=== PATIENT | female | born 1945 | race Caucasian/White ===

== ENCOUNTER 2019-12-20 17:54 | Observation (INO) | payer MEDICARE ==
[2019-12-20] MEDS ORDERED: IPRATROPIUM-ALBUTEROL 3 ML NEB INHALATION PRN (18:35)
--- NOTE | 2019-12-20 18:39 | ED ---
General Adult HPI - General Chief complaint: Shortness of Breath Stated complaint: SOB Time Seen by Provider: 12/20/19 18:02 Source: patient, RN notes reviewed, old records reviewed Mode of arrival: ambulatory Limitations: no limitations - History of Present Illness Initial comments: 74-year-old female transferred from [facility] with asthma exacerbation and x-ray confirming pneumonia. Patient had presented with cough, dyspnea over the past 24 hours. She does have a history of asthma. She had subjective fever and chills. She was given albuterol, steroids, and ceftriaxone and azithromycin prior to transfer. She did have an elevated white blood cell count of 15.8 as well as chest x-ray confirming pneumonia. Covid test was sent but it was a send out and patient is uncertain if she had contact with any confirmed cases. Review of Systems ROS Statement: Those systems with pertinent positive or pertinent negative responses have been documented in the HPI. ROS Other: All systems not noted in ROS Statement are negative. Past Medical History Past Medical History: No Reported History History of Any Multi-Drug Resistant Organisms: None Reported Past Surgical History: No Surgical Hx Reported Past Psychological History: No Psychological Hx Reported Smoking Status: Current every day smoker Past Alcohol Use History: Occasional Past Drug Use History: None Reported General Exam Limitations: no limitations General appearance: alert, in no apparent distress Head exam: Present: atraumatic, normocephalic Eye exam: Present: normal appearance, PERRL ENT exam: Present: normal exam Neck exam: Present: normal inspection. Absent: tenderness, meningismus Respiratory exam: Present: respiratory distress, wheezes, decreased breath sounds Cardiovascular Exam: Present: regular rate, normal rhythm GI/Abdominal exam: Present: soft. Absent: distended, tenderness, guarding Extremities exam: Present: normal inspection, normal capillary refill. Absent: pedal edema Neurological exam: Present: alert, oriented X3, CN II-XII intact. Absent: motor sensory deficit Psychiatric exam: Present: normal affect, normal mood Skin exam: Present: warm, dry, intact Course Vital Signs 12/20/19 12/20/19 17:57 18:28 Temperature 98.7 F Pulse Rate 93 Respiratory 20 20 Rate Blood Pressure 149/91 O2 Sat by Pulse 98 Oximetry EKG Findings - EKG Comments: EKG Findings:: EKG: Normal sinus rhythm, ST segment depression in the lateral precordial leads, very subtle, no ST segment elevation, rate of 88, [place] interval 144, QRS duration 82, QTC 462 Medical Decision Making - Medical Decision Making 74-year-old female transferred with asthma exacerbation and pneumonia. Patient will be admitted to this institution for IV antibiotics, IV steroids, albuterol and Atrovent. She will be admitted to internal medicine. Disposition Clinical Impression: Asthma with acute exacerbation, Community acquired pneumonia Disposition: ADMITTED IP TO THIS [facility] Condition: Stable Is patient prescribed a controlled substance at d/c from ED?: No Referrals: Austin Valentine MD [Primary Care Provider] - 1-2 days Decision to Admit Reason: Admit from EC Decision Date: 12/20/19 Decision Time: 18:39
[2019-12-20] MEDS: IPRATROPIUM-ALBUTEROL 3 ML NEB INHALATION SCH (20:06)
[2019-12-20] MEDS ORDERED: SODIUM CHLORIDE 0.9% 1,000 ML IV SCH (22:30)
[2019-12-20] MEDS: HEPARIN SODIUM,PORCINE 5,000 UNIT/ML 1 ML VIAL SQ SCH (23:56)
[2019-12-20] MEDS: SODIUM CHLORIDE 0.9% 1,000 ML IV SCH (23:57)
[2019-12-20] MEDS: methylPREDNISolone SOD SUCCI 125 MG/2 ML VIAL IV SCH (23:59)
[2019-12-21] MEDS: methylPREDNISolone SOD SUCCI 125 MG/2 ML VIAL IV SCH (05:16)
[2019-12-21 07:10] LABS: Glucose,Whole Blood 121 mg/dL (75-99)
[2019-12-21] MEDS: INSULIN ASPART (NovoLOG) 100 UNIT/ML VIAL SQ SCH ×4 (07:31→22:09)
[2019-12-21] MEDS: AZITHROMYCIN 500 MG in SODIUM CHLORIDE 0.9% 250 ML IVPB SCH (08:29)
[2019-12-21] MEDS: FAMOTIDINE 20 MG/2 ML VIAL IV SCH ×2 (08:29→22:07)
[2019-12-21] MEDS: HEPARIN SODIUM,PORCINE 5,000 UNIT/ML 1 ML VIAL SQ SCH ×2 (08:29→22:07)
[2019-12-21 08:46] LABS: Partial Thromboplastin Time 25.8 sec (22.0-30.0); Prothrombin Time 10.4 sec (9.0-12.0)
[2019-12-21 08:47] LABS: Basophils % (A) 0 %; Eosinophils # (A) 0.1 k/uL (0-0.7); Eosinophils % (A) 1 %; HCT 44.5 % (34.0-46.0); HGB 14.9 gm/dL (11.4-16.0); Lymphocytes # (A) 0.5 k/uL (1.0-4.8); Lymphocytes % (A) 4 %; MCH 30.7 pg (25.0-35.0); MCHC 33.4 g/dL (31.0-37.0); MCV 91.7 fL (80.0-100.0); Mean Platelet Volume 7.7; Monocytes # (A) 0.2 k/uL (0-1.0); Monocytes % (A) 1 %; Neutrophils # (A) 12.1 k/uL (1.3-7.7); Neutrophils % (A) 94 %; Platelet Count 320 k/uL (150-450); RBC 4.85 m/uL (3.80-5.40); RDW 12.8 % (11.5-15.5); WBC 12.9 k/uL (3.8-10.6)
[2019-12-21] MEDS: IPRATROPIUM-ALBUTEROL 3 ML NEB INHALATION SCH ×4 (08:48→20:12)
[2019-12-21 08:53] LABS: ALT 16 U/L (4-34); AST 19 U/L (14-36); African American GFR (CKD) >90 (>60 ml/min/1.73 sqM); Albumin 4.3 g/dL (3.5-5.0); Alkaline Phosphatase 66 U/L (38-126); Anion Gap 13 mmol/L; Bilirubin,Unconjugated 0.7 mg/dL (0.0-1.1); Blood Urea Nitrogen 18 mg/dL (7-17); Calcium 9.6 mg/dL (8.4-10.2); Carbon Dioxide 20 mmol/L (22-30); Chloride 103 mmol/L (98-107); Glucose 111 mg/dL (74-99); Magnesium 2.2 mg/dL (1.6-2.3); Non-African American GFR(CKD) >90 (>60 ml/min/1.73 sqM); Sodium 136 mmol/L (137-145); Total Bilirubin 0.7 mg/dL (0.2-1.3); Total Protein 7.5 g/dL (6.3-8.2)
[2019-12-21] MEDS ORDERED: ALBUTEROL HFA INHALER INHALATION PRN (10:35)
--- NOTE | 2019-12-21 10:52 | P.HPIM ---
History of Present Illness this is a pleasant 74 years old female with past medical history of asthma and cigarette smoker, who was transferred from [facility] area she is a patient of Dr. Dedrick Valentine. Presents with respiratory symptoms: She presents because of dyspnea of one-day duration associated with subjective chills, no fever,she has cough with little green purulent phlegm. and in the afternoon yesterdaypatient was started to have some chest discomfort,she had EKG Showing sinus tachycardia with ST depression in V4 to V6,however this morning patient denies chest pain, she is breathing quietly in no acute respiratory distress labs are [facility] showingleukocytosis of 15.8 K, hemoglobin 14.9, platelets 270 1K, glucose 116, creatinine 1.0, GFR 55, sodium is 134, potassium 3.5, anion gap 17, liver enzymes elevated with AST 11 and ALT 13, total bilirubin is 1.0, troponin less than 0.01, chest x-ray showing infarct left base I [facility] patient was given Rocephin, Zithromax, aspirin and BiPAP. Coronavirus was tested She smokes about 1 pack per day for 50 years, and she drinks about 11 beers per day At [facility] another EKG showing normal sinus rhythm at [address]-T changes and QTC is 462 repeat labs this morning showing improvementimproved leukocytosis down to 12.9 K, sodium 136, creatinine normal at 0.6, liver enzymes not elevated, coronavirus not detected. EKG showing normal sinus rhythm at [address]-T changes and less pronounced ST depression in V4 to V6 Review of Systems CONSTITUTIONAL: No fever, no malaise, no fatigue. HEENT: No recent visual problems or hearing problems. Denied any sore throat. CARDIOVASCULAR: No orthopnea, PND, no palpitations, no syncope. PULMONARY: no hemoptysis. no chest wall tenderness GASTROINTESTINAL: No diarrhea, no nausea, no vomiting, no abdominal pain. Normoactive bowel sounds. NEUROLOGICAL: No headaches, no weakness, no numbness. HEMATOLOGICAL: Denies any bleeding or petechiae. GENITOURINARY: Denies any burning micturition, frequency, or urgency. MUSCULOSKELETAL/RHEUMATOLOGICAL: Denies any joint pain, swelling, or any muscle pain. ENDOCRINE: Denies any polyuria or polydipsia. Past Medical History Past Medical History: No Reported History Additional Past Medical History / Comment(s): NASAL CONGESTION History of Any Multi-Drug Resistant Organisms: None Reported Past Surgical History: No Surgical Hx Reported Past Anesthesia/Blood Transfusion Reactions: No Reported Reaction Past Psychological History: No Psychological Hx Reported Smoking Status: Current every day smoker Past Alcohol Use History: Occasional Additional Past Alcohol Use History / Comment(s): STATES BEER ON WEEKENDS Past Drug Use History: None Reported Medications and Allergies Home Medications Medication Instructions Recorded Confirmed Type Cetirizine HCl/Pseudoephedrine 1 tab PO DAILY 12/21/19 12/21/19 History [Zyrtec-D Tablet] Nitrofurantoin Monohyd/M-Cryst 100 mg PO BID 12/21/19 12/21/19 History [Macrobid] Zolpidem Tartrate [Ambien] 5 mg PO HS PRN 12/21/19 12/21/19 History Allergies Allergy/AdvReac Type Severity Reaction Status Date / Time Penicillins Allergy Unknown Verified 12/21/19 08:41 Physical Exam Vitals: Vital Signs Temp Pulse Pulse Pulse Resp BP BP 12/21/19 09:07 96 12/21/19 09:00 92 12/21/19 07:00 98.3 F 93 16 138/88 12/21/19 02:00 98.1 F 100 19 147/87 12/20/19 23:30 18 12/20/19 20:30 98.3 F 90 18 148/77 12/20/19 19:50 98.0 F 92 18 157/76 12/20/19 19:07 98.0 F 92 18 157/76 12/20/19 18:28 20 12/20/19 17:57 98.7 F 93 20 149/91 Pulse Ox 12/21/19 09:07 12/21/19 09:00 12/21/19 07:00 94 L 12/21/19 02:00 92 L 12/20/19 23:30 12/20/19 20:30 94 L 12/20/19 19:50 98 12/20/19 19:07 98 12/20/19 18:28 12/20/19 17:57 98 Intake and Output 12/20/19 12/21/19 12/21/19 22:59 06:59 14:59 Intake Total 450 320 Balance 450 320 Intake: Oral 450 320 Other: Voiding Method Toilet Toilet # Voids 1 1 Weight 77.111 kg GENERAL: The patient is alert and oriented x3, not in any acute distress. Well developed, well nourished. HEENT: Pupils are round and equally reacting to light. EOMI. No scleral icterus. No conjunctival pallor. Normocephalic, atraumatic. No pharyngeal erythema. No thyromegaly. CARDIOVASCULAR: S1 and S2 present. No murmurs, rubs, or gallops. -PULMONARY: Chest is clear to auscultation,scattered bilateral wheezing ABDOMEN: Soft, nontender, nondistended, normoactive bowel sounds. No palpable organomegaly. MUSCULOSKELETAL: No joint swelling or deformity. EXTREMITIES: No cyanosis, clubbing, or pedal edema. NEUROLOGICAL: Gross neurological examination did not reveal any focal deficits. SKIN: No rashes. No petechiae Results CBC & Chem 7: 12/21/19 07:49 12/21/19 07:49 Labs: Abnormal Lab Results - Last 24 Hours (Table) 12/21/19 12/21/19 12/21/19 Range/Units 07:07 07:49 07:49 WBC 12.9 H (3.8-10.6) k/uL Neutrophils # 12.1 H (1.3-7.7) k/uL Lymphocytes # 0.5 L (1.0-4.8) k/uL Sodium 136 L (137-145) mmol/L Carbon Dioxide 20 L (22-30) mmol/L BUN 18 H (7-17) mg/dL Glucose 111 H (74-99) mg/dL POC Glucose (mg/dL) 121 H (75-99) mg/dL Thrombosis Risk Factor Assmnt - Choose All That Apply Any of the Below Risk Factors Present?: No Other Risk Factors: Yes Each Risk Factor Represents 2 Points: Age 61-74 years Other congenital or acquired thrombophilia - If yes, enter type in comment: No Thrombosis Risk Factor Assessment Total Risk Factor Score: 2 Thrombosis Risk Factor Assessment Level: Low Risk Assessment and Plan Assessment: possible left lower lobe community acquired pneumonia possible acute COPD exacerbation chest discomfort, with reversible ST depression in V4 to V6 Nicotine dependence possible alcohol abuse, at-risk of alcohol withdrawal asthma Plan: this is a pleasant 72 years old female presents because of pneumonia and chest pain with EKG changes. Continue with Zithromax and ceftriaxone, continue gentle hydration, continue with steroids. continue with aspirin.Continue with a breathing treatment,repeat chest x-ray, we will order echocardiogram Labs and medication were reviewed.. Continue same treatment. Continue with symptomatic treatment. Resume home medication. Monitor lytes and vitals. DVT and GI prophylaxis. Further recommendations of the clinical course of the patient DVT prophylaxis: Subcutaneous heparin GI Prophylaxis: Pepcid PT/OT: Pending Prognosis is guarded
--- NOTE | 2019-12-21 11:11 | P.CRDCN ---
History of Present Illness Consult date: 12/21/19 Requesting physician: Pj E Sheet Reason for Consult (text): chest discomfort, ST depression Chief complaint: shortness of breath, chest tightness History of present illness: This is a pleasant 74-year-old female patient with no significant past medical history. Does have a history of smoking about a pack a day for the last 50 or more years. Takes no medications at home. Presented to the hospital at [place] with complaints of shortness of breath and chest tightness. She usually walks 3-4 miles every day and yesterday was having difficulties is getting around her house without having to rest. She has noticed looking back that over the last week she's had to stop more during her walks to catch her breath. Chest x-ray out of the [place] showed possible left base infiltrate. White count is elevated. Troponin was negative times one at [facility] at 0.01 and NT proBNP was normal at 90. EKG and [place] did show some ST depression in anterolateral leads. EKG upon presentation here showed some improvement and she was less tachycardic. She was transferred here for higher level care. Since admission here blood pressure has been elevated and heart rate has been in the 90s. She's on room air saturating anywhere from 94-98%. Covid 19 was negative. Laboratory values done here showed a white blood cell, 12,900, sodium 136, potassium 4.0, BUN 18 and creatinine 0.61. Upon examination, patient is resting comfortably in bed. Feels her breathing has improved quite a bit. She denies further complaints of chest tightness. She's had no complaints of dizziness, l ightheadedness, syncope, edema or weight gain. She's had no orthopnea or PND. Past Medical History Past Medical History: No Reported History Additional Past Medical History / Comment(s): NASAL CONGESTION History of Any Multi-Drug Resistant Organisms: None Reported Past Surgical History: No Surgical Hx Reported Past Anesthesia/Blood Transfusion Reactions: No Reported Reaction Past Psychological History: No Psychological Hx Reported Smoking Status: Current every day smoker Past Alcohol Use History: Occasional Additional Past Alcohol Use History / Comment(s): STATES BEER ON WEEKENDS Past Drug Use History: None Reported Medications and Allergies Home Medications Medication Instructions Recorded Confirmed Type Cetirizine HCl/Pseudoephedrine 1 tab PO DAILY 12/21/19 12/21/19 History [Zyrtec-D Tablet] Nitrofurantoin Monohyd/M-Cryst 100 mg PO BID 12/21/19 12/21/19 History [Macrobid] Zolpidem Tartrate [Ambien] 5 mg PO HS PRN 12/21/19 12/21/19 History Allergies Allergy/AdvReac Type Severity Reaction Status Date / Time Penicillins Allergy Unknown Verified 12/21/19 08:41 Physical Exam Vitals: Vital Signs Temp Pulse Pulse Pulse Resp BP BP 12/21/19 09:07 96 12/21/19 09:00 92 12/21/19 07:00 98.3 F 93 16 138/88 12/21/19 02:00 98.1 F 100 19 147/87 12/20/19 23:30 18 12/20/19 20:30 98.3 F 90 18 148/77 12/20/19 19:50 98.0 F 92 18 157/76 12/20/19 19:07 98.0 F 92 18 157/76 12/20/19 18:28 20 12/20/19 17:57 98.7 F 93 20 149/91 Pulse Ox 12/21/19 09:07 12/21/19 09:00 12/21/19 07:00 94 L 12/21/19 02:00 92 L 12/20/19 23:30 12/20/19 20:30 94 L 12/20/19 19:50 98 12/20/19 19:07 98 12/20/19 18:28 12/20/19 17:57 98 Intake and Output 12/20/19 12/21/19 12/21/19 22:59 06:59 14:59 Intake Total 450 320 Balance 450 320 Intake: Oral 450 320 Other: Voiding Method Toilet Toilet # Voids 1 1 Weight 77.111 kg PHYSICAL EXAMINATION: HEENT: Head is atraumatic, normocephalic. Pupils equal, round. Neck is supple. There is no elevated jugular venous pressure. HEART EXAMINATION: Heart sounds regular, S1 and S2 normal. No murmur or gallop heard. CHEST EXAMINATION: Lungs reveal diminished air entry bilaterally with faint crackles to the left base. No chest wall tenderness is noted on palpation or with deep breathing. ABDOMEN: Soft, nontender. Bowel sounds are heard. No organomegaly noted. EXTREMITIES: 2+ peripheral pulses with no evidence of peripheral edema and no calf tenderness noted. NEUROLOGIC patient is awake, alert and oriented x3. . Results 12/21/19 07:49 12/21/19 07:49 Cardiac Enzymes 12/21/19 Range/Units 07:49 AST 19 (14-36) U/L Coagulation 12/21/19 Range/Units 07:49 PT 10.4 (9.0-12.0) sec APTT 25.8 (22.0-30.0) sec CBC 12/21/19 Range/Units 07:49 WBC 12.9 H (3.8-10.6) k/uL RBC 4.85 (3.80-5.40) m/uL Hgb 14.9 (11.4-16.0) gm/dL Hct 44.5 (34.0-46.0) % Plt Count 320 (150-450) k/uL Comprehensive Metabolic Panel 12/21/19 Range/Units 07:49 Sodium 136 L (137-145) mmol/L Potassium 4.0 (3.5-5.1) mmol/L Chloride 103 (98-107) mmol/L Carbon Dioxide 20 L (22-30) mmol/L BUN 18 H (7-17) mg/dL Creatinine 0.61 (0.52-1.04) mg/dL Glucose 111 H (74-99) mg/dL Calcium 9.6 (8.4-10.2) mg/dL Unconjugated Bilirubin 0.7 (0.0-1.1) mg/dL AST 19 (14-36) U/L ALT 16 (4-34) U/L Alkaline Phosphatase 66 (38-126) U/L Total Protein 7.5 (6.3-8.2) g/dL Albumin 4.3 (3.5-5.0) g/dL Current Medications Generic Name Dose Route Start Last Admin Trade Name Freq PRN Reason Stop Dose Admin Albuterol Sulfate 2 puff 12/21/19 10:35 Ventolin Hfa Inhaler INHALATION RT-QID PRN Shortness Of Breath Or Wheezing Albuterol/Ipratropium 3 ml 12/20/19 18:35 Duoneb 0.5 Mg-3 Mg/3 Ml Soln INHALATION RT-Q4H PRN Shortness Of Breath Or Wheezing Albuterol/Ipratropium 3 ml 12/20/19 20:00 12/21/19 08:48 Duoneb 0.5 Mg-3 Mg/3 Ml Soln INHALATION 3 ml RT-QID JUNE Administration Aspirin 81 mg 12/21/19 11:00 Aspirin PO DAILY JUNE Famotidine 20 mg 12/21/19 09:00 12/21/19 08:29 Pepcid IV 20 mg Q12HR JUNE Administration Heparin Sodium (Porcine) 5,000 unit 12/20/19 22:15 12/21/19 08:29 Heparin SQ 5,000 unit Q12HR JUNE Administration Azithromycin 500 mg/ Sodium 250 mls @ 250 mls/hr 12/21/19 09:00 12/21/19 08:29 Chloride IVPB 250 mls/hr DAILY JUNE Administration Ceftriaxone Sodium 1 gm/ 50 mls @ 100 mls/hr 12/21/19 09:00 12/21/19 10:02 Sodium Chloride IVPB 100 mls/hr Q24HR JUNE Administration Sodium Chloride 1,000 mls @ 50 mls/hr 12/20/19 22:30 12/20/19 23:57 Saline 0.9% IV 50 mls/hr .Q20H JUNE Administration Insulin Aspart 0 unit 12/21/19 07:30 12/21/19 07:31 Novolog SQ Not Given ACHS [facility] Protocol Methylprednisolone Sodium Succinate 40 mg 12/21/19 16:00 Solu-Medrol IV Q8HR [facility] Metoprolol Tartrate 12.5 mg 12/21/19 11:00 Lopressor PO BID JUNE Nicotine 1 patch 12/22/19 09:00 Habitrol 21mg/24hr Patch TRANSDERM DAILY JUNE Intake and Output 12/20/19 12/21/19 12/21/19 22:59 06:59 14:59 Intake Total 450 320 Balance 450 320 Intake: Oral 450 320 Other: Voiding Method Toilet Toilet # Voids 1 1 Weight 77.111 kg 12/21/19 07:49 12/21/19 07:49 Assessment and Plan Assessment: #1 symptom shortness of breath with a cough and evidence of possible left base infiltrate on chest x-ray and elevated white blood cell count #2 symptoms of chest tightness with some ST depression noted on EKG, troponin negative 1 #3 smoking one pack per day for 50+ years #4 elevated blood pressure with no history of hypertension Plan: From cardiology perspective, we will obtain a 2-D echo with Doppler. We will add low-dose aspirin and low-dose beta effie. Continue to follow the trend of the troponins. We'll continue to follow the patient for further recommendations accordingly. PNEUMATIC DEICER INSPECTOR note has been reviewed, I agree with a documented findings and plan of care. Patient was seen and examined.
--- NOTE | 2019-12-21 11:12 | XR ---
EXAMINATION TYPE: XR chest 1V DATE OF EXAM: 12/21/2019 HISTORY: left lower lobe pneumonia. REFERENCE: Previous study dated 12/20/2019. FINDINGS: Lung volumes are prominent. The heart is not enlarged. There is atelectatic change present at the left lung base. There is some scarring or atelectasis of the right lung base. The lungs are ot herwise clear. There is minimal blunting of the left CP angle and I could not exclude a small left ef fusion. IMPRESSION: 1. COPD. 2. ATELECTASIS VERSUS INFILTRATE, LEFT LUNG BASE. 3. SMALL LEFT EFFUSION.
[2019-12-21] MEDS: ASPIRIN 81 MG PO SCH (11:27)
[2019-12-21] MEDS: METOPROLOL TARTRATE 12.5 MG TAB PO SCH ×2 (11:27→22:08)
[2019-12-21 11:53] LABS: Glucose,Whole Blood 124 mg/dL (75-99)
[2019-12-21] MEDS ORDERED: methylPREDNISolone SOD SUCCI 40 MG/ML 1 ML VIAL IV SCH (16:00)
[2019-12-21 16:38] LABS: Glucose,Whole Blood 112 mg/dL (75-99)
[2019-12-21] MEDS: SODIUM CHLORIDE 0.9% 1,000 ML IV SCH (16:38)
[2019-12-21 21:56] LABS: Glucose,Whole Blood 154 mg/dL (75-99)
[2019-12-22 07:24] LABS: Glucose,Whole Blood 102 mg/dL (75-99)
[2019-12-22 07:26] LABS: Basophils % (A) 0 %; Eosinophils # (A) 0.2 k/uL (0-0.7); Eosinophils % (A) 1 %; HCT 39.2 % (34.0-46.0); HGB 12.8 gm/dL (11.4-16.0); Lymphocytes # (A) 1.3 k/uL (1.0-4.8); Lymphocytes % (A) 6 %; MCHC 32.7 g/dL (31.0-37.0); MCV 91.7 fL (80.0-100.0); Mean Platelet Volume 7.7; Monocytes # (A) 0.6 k/uL (0-1.0); Monocytes % (A) 3 %; Neutrophils # (A) 19.2 k/uL (1.3-7.7); Neutrophils % (A) 89 %; Platelet Count 306 k/uL (150-450); RBC 4.28 m/uL (3.80-5.40); RDW 12.5 % (11.5-15.5); WBC 21.5 k/uL (3.8-10.6)
[2019-12-22] MEDS: INSULIN ASPART (NovoLOG) 100 UNIT/ML VIAL SQ SCH ×4 (07:28→21:18)
[2019-12-22] MEDS: METOPROLOL TARTRATE 12.5 MG TAB PO SCH ×2 (07:35→21:17)
[2019-12-22] MEDS: HEPARIN SODIUM,PORCINE 5,000 UNIT/ML 1 ML VIAL SQ SCH ×2 (07:36→21:17)
[2019-12-22] MEDS: FAMOTIDINE 20 MG/2 ML VIAL IV SCH ×2 (07:36→21:17)
[2019-12-22] MEDS: ASPIRIN 81 MG PO SCH (07:36)
[2019-12-22] MEDS: NICOTINE 21MG/24HR PATCH TRANSDERM SCH (07:36)
[2019-12-22] MEDS: AZITHROMYCIN 500 MG in SODIUM CHLORIDE 0.9% 250 ML IVPB SCH (07:45)
[2019-12-22] MEDS: IPRATROPIUM-ALBUTEROL 3 ML NEB INHALATION SCH ×4 (07:47→19:44)
[2019-12-22 07:51] LABS: Calcium 9.3 mg/dL (8.4-10.2); Potassium 4.1 mmol/L (3.5-5.1)
[2019-12-22] MEDS ORDERED: predniSONE 20 MG TAB PO SCH (09:00)
[2019-12-22 11:21] LABS: Glucose,Whole Blood 95 mg/dL (75-99)
--- NOTE | 2019-12-22 11:34 | P.PN ---
Subjective this is a pleasant 74 years old female with past medical history of asthma and cigarette smoker, who was transferred from [facility] area she is a patient of Dr. Dedrick Valentine. Presents with respiratory symptoms: She presents because of dyspnea of one-day duration associated with subjective chills, no fever,she has cough with little green purulent phlegm. and in the afternoon yesterdaypatient was started to have some chest discomfort,she had EKG Showing sinus tachycardia with ST depression in V4 to V6,however this morning patient denies chest pain, she is breathing quietly in no acute respiratory distress labs are [facility] showingleukocytosis of 15.8 K, hemoglobin 14.9, platelets 270 1K, glucose 116, creatinine 1.0, GFR 55, sodium is 134, potassium 3.5, anion gap 17, liver enzymes elevated with AST 11 and ALT 13, total bilirubin is 1.0, troponin less than 0.01, chest x-ray showing infarct left base I [facility] patient was given Rocephin, Zithromax, aspirin and BiPAP. Coronavirus was tested She smokes about 1 pack per day for 50 years, and she drinks about 11 beers per day At [facility] another EKG showing normal sinus rhythm at [address]-T changes and QTC is 462 repeat labs this morning showing improved leukocytosis down to 12.9 K, sodium 136, creatinine normal at 0.6, liver enzymes not elevated, coronavirus not detected. EKG showing normal sinus rhythm at [address]-T changes and less pronounced ST depression in V4 to V6 12/22/2019 Patient is gradually improving with her dyspnea. No chest pain or coughing. Hemodynamically stable. No fever Leukocytosis worsens up to 20 1.5K however this could be reactive secondary to Solu-Medrol and prednisone she got yesterday. Sodium 136, creatinine 0.8, sugar is controlled. No more chest pain and [employer] recommended to continue with medical therapy, aspirin and low dose metoprolol has been added. Patient if she keeps improving then possible discharge in 24-48 hours Review of systems CONSTITUTIONAL: No fever, no malaise, no fatigue. HEENT: No recent visual problems or hearing problems. Denied any sore throat. CARDIOVASCULAR: No orthopnea, PND, no palpitations, no syncope. PULMONARY: No shortness of breath, no cough, no hemoptysis. GASTROINTESTINAL: No diarrhea, no nausea, no vomiting, no abdominal pain. Normoactive bowel sounds. NEUROLOGICAL: No headaches, no weakness, no numbness. HEMATOLOGICAL: Denies any bleeding or petechiae. GENITOURINARY: Denies any burning micturition, frequency, or urgency. MUSCULOSKELETAL/RHEUMATOLOGICAL: Denies any joint pain, swelling, or any muscle pain. ENDOCRINE: Denies any polyuria or polydipsia. Active Medications Generic Name Dose Route Start Last Admin Trade Name Freq PRN Reason Stop Dose Admin Albuterol Sulfate 2 puff 12/21/19 10:35 Ventolin Hfa Inhaler INHALATION RT-QID PRN Shortness Of Breath Or Wheezing Albuterol/Ipratropium 3 ml 12/20/19 18:35 Duoneb 0.5 Mg-3 Mg/3 Ml Soln INHALATION RT-Q4H PRN Shortness Of Breath Or Wheezing Albuterol/Ipratropium 3 ml 12/20/19 20:00 12/22/19 11:33 Duoneb 0.5 Mg-3 Mg/3 Ml Soln INHALATION 3 ml RT-QID JUNE Administration Aspirin 81 mg 12/21/19 11:00 12/22/19 07:36 Aspirin PO 81 mg DAILY JUNE Administration Azithromycin 500 mg 12/23/19 09:00 Zithromax PO DAILY JUNE Famotidine 20 mg 12/21/19 09:00 12/22/19 07:36 Pepcid IV 20 mg Q12HR JUNE Administration Heparin Sodium (Porcine) 5,000 unit 12/20/19 22:15 12/22/19 07:36 Heparin SQ 5,000 unit Q12HR JUNE Administration Azithromycin 500 mg/ Sodium 250 mls @ 250 mls/hr 12/21/19 09:00 12/22/19 07:45 Chloride IVPB 12/22/19 23:00 250 mls/hr DAILY JUNE Administration Ceftriaxone Sodium 1 gm/ 50 mls @ 100 mls/hr 12/21/19 09:00 12/22/19 07:36 Sodium Chloride IVPB 100 mls/hr Q24HR JUNE Administration Sodium Chloride 1,000 mls @ 50 mls/hr 12/20/19 22:30 12/21/19 16:38 Saline 0.9% IV Not Given .Q20H JUNE Insulin Aspart 0 unit 12/21/19 07:30 12/22/19 11:21 Novolog SQ Not Given ACHS [facility] Protocol Metoprolol Tartrate 12.5 mg 12/21/19 11:00 12/22/19 07:35 Lopressor PO 12.5 mg BID JUNE Administration Nicotine 1 patch 12/22/19 09:00 12/22/19 07:36 Habitrol 21mg/24hr Patch TRANSDERM Not Given DAILY JUNE Prednisone 30 mg 12/23/19 09:00 PO DAILY JUNE Objective - Vital Signs Vital signs: Vital Signs Temp 98.0 F 12/22/19 07:00 Pulse 84 12/22/19 07:59 Resp 19 12/22/19 07:36 BP 136/75 12/22/19 07:00 Pulse Ox 94 L 12/22/19 07:00 Intake & Output 12/21/19 12/22/19 12/22/19 18:59 06:59 18:59 Intake Total 1000 Balance 1000 Intake: Oral 1000 Other: Voiding Method Toilet Toilet Toilet # Voids 2 2 - Exam GENERAL: The patient is alert and oriented x3, not in any acute distress. Well developed, well nourished. HEENT: Pupils are round and equally reacting to light. EOMI. No scleral icterus. No conjunctival pallor. Normocephalic, atraumatic. No pharyngeal erythema. No thyromegaly. CARDIOVASCULAR: S1 and S2 present. No murmurs, rubs, or gallops. PULMONARY: Chest is clear to auscultation, no wheezing or crackles. ABDOMEN: Soft, nontender, nondistended, normoactive bowel sounds. No palpable organomegaly. MUSCULOSKELETAL: No joint swelling or deformity. EXTREMITIES: No cyanosis, clubbing, or pedal edema. NEUROLOGICAL: Gross neurological examination did not reveal any focal deficits. SKIN: No rashes. no petechiae. - Labs CBC & Chem 7: 12/22/19 06:33 12/22/19 06:33 Labs: Abnormal Lab Results - Last 24 Hours (Table) 12/21/19 12/21/19 12/21/19 Range/Units 11:45 16:36 21:54 WBC (3.8-10.6) k/uL Neutrophils # (1.3-7.7) k/uL Sodium (137-145) mmol/L Carbon Dioxide (22-30) mmol/L BUN (7-17) mg/dL POC Glucose (mg/dL) 124 H 112 H 154 H (75-99) mg/dL 12/22/19 12/22/19 12/22/19 Range/Units 06:33 06:33 07:23 WBC 21.5 H (3.8-10.6) k/uL Neutrophils # 19.2 H (1.3-7.7) k/uL Sodium 136 L (137-145) mmol/L Carbon Dioxide 21 L (22-30) mmol/L BUN 27 H (7-17) mg/dL POC Glucose (mg/dL) 102 H (75-99) mg/dL Assessment and Plan Assessment: possible left lower lobe community acquired pneumonia possible acute COPD exacerbation chest discomfort, with reversible ST depression in V4 to V6 Nicotine dependence possible alcohol abuse, at-risk of alcohol withdrawal asthma Plan: this is a pleasant 72 years old female presents because of pneumonia and chest pain with EKG changes. Continue with Zithromax and ceftriaxone, continue gentle hydration, continue with steroids. continue with aspirin.Continue with a breathing treatment,repeat chest x-ray, we will order echocardiogram Labs and medication were reviewed.. Continue same treatment. Continue with symptomatic treatment. Resume home medication. Monitor lytes and vitals. DVT and GI prophylaxis. Further recommendations of the clinical course of the patient DVT prophylaxis: Subcutaneous heparin GI Prophylaxis: Pepcid PT/OT: Pending Prognosis is guarded
--- NOTE | 2019-12-22 12:17 | P.PN ---
Subjective This is a pleasant 74-year-old female past medical history significant for chronic nicotine dependence. She has no prior history of coronary artery disease and does not follow regularly with a pathology assistant. She is seen and examined sitting up in bed in no acute distress. She has had no further symptoms of chest pain and her breathing has improved. Blood pressure 136/75 heart rate 84 afebrile and maintaining oxygen saturation on room air. Laboratory data reviewed, WBC 21.5, hgb 12.8, plt 306, sodium 136, potassium 4.1, creatinine 0.8 3 and troponins negative x3. Currently maintained on aspirin 81 mg daily and lopressor 12.5 mg BID along with antibiotics, PO steroids and updraft treatments. Echocardiogram obtained and reviewed by Dr. Vela. Normal LV systolic function with preserved ejection fraction. No wall motion abnormalities . GENERAL: Well-appearing, well-nourished and in no acute distress. NECK: Supple without JVD or thyromegaly. LUNGS: Breath sounds clear to auscultation bilaterally. Respiration equal and unlabored. No wheezes, rales or rhonchi. Diminished bilaterally. HEART: Regular rate and rhythm without murmurs, rubs or gallops. S1 and S2 heard. EXTREMITIES: Normal range of motion, no edema. No clubbing or cyanosis. Peripheral pulses intact. ASSESSMENT Left lower lobe pneumonia Leukocytosis Chest pain, an acute coronary event has been ruled out. Hypertension Chronic nicotine dependence PLAN An acute coronary event has been ruled out. No evidence of wall motion abnormalities on echocardiogram. Ongoing medical management and treatment of pneumonia. Follow up in the office with Dr. Atkinson upon discharge for outpatient stress testing when pneumonia has improved. We will follow along as needed, please call with further questions or concerns. Nurse Practitioner note has been reviewed, I agree with a documented findings and plan of care. Patient was seen and examined. Objective - Vital Signs Vital signs: Vital Signs Temp 98.0 F 12/22/19 07:00 Pulse 84 12/22/19 07:59 Resp 19 12/22/19 07:36 BP 136/75 12/22/19 07:00 Pulse Ox 94 L 12/22/19 07:00 Intake & Output 12/21/19 12/22/19 12/22/19 18:59 06:59 18:59 Intake Total 1000 Balance 1000 Intake: Oral 1000 Other: Voiding Method Toilet Toilet Toilet # Voids 2 2 - Labs CBC & Chem 7: 12/22/19 06:33 12/22/19 06:33 Labs: Abnormal Lab Results - Last 24 Hours (Table) 12/21/19 12/21/19 12/21/19 Range/Units 11:45 16:36 21:54 WBC (3.8-10.6) k/uL Neutrophils # (1.3-7.7) k/uL Sodium (137-145) mmol/L Carbon Dioxide (22-30) mmol/L BUN (7-17) mg/dL POC Glucose (mg/dL) 124 H 112 H 154 H (75-99) mg/dL 12/22/19 12/22/19 12/22/19 Range/Units 06:33 06:33 07:23 WBC 21.5 H (3.8-10.6) k/uL Neutrophils # 19.2 H (1.3-7.7) k/uL Sodium 136 L (137-145) mmol/L Carbon Dioxide 21 L (22-30) mmol/L BUN 27 H (7-17) mg/dL POC Glucose (mg/dL) 102 H (75-99) mg/dL
--- NOTE | 2019-12-22 12:31 | ECHOF ---
Referral Reason:Rule out heart disease MEASUREMENTS -------- HEIGHT: 160.0 cm WEIGHT: 77.1 kg BP: 124/71 RVIDd: 3.4 cm (< 3.3) IVSd: 1.4 cm (0.6 - 1.1) LVIDd: 3.3 cm (3.9 - 5.3) LVPWd: 1.3 cm (0.6 - 1.1) IVSs: 1.6 cm LVIDs: 2.5 cm LVPWs: 1.8 cm LAESV Index (A-L): 16.96 ml/m Ao Diam: 2.4 cm (2.0 - 3.7) AV Cusp: 1.7 cm (1.5 - 2.6) MV EXCURSION: 11.844 mm (> 18.000) MV EF SLOPE: 55 mm/s (70 - 150) EPSS: 0.3 cm RAP: 5.00 mmHg RVSP: 44.85 mmHg FINDINGS -------- Sinus rhythm. This was a technically adequate study. The left ventricular size is normal. There is mild concentric left ventricular hypertrophy. Overa ll left ventricular systolic function is normal with, an EF between 55 - 60 %. The right ventricle is mildly enlarged. Normal LA size by volume 22+/-6 ml/m2. The right atrium is mildly enlarged. Interatrial and interventricular septum intact. There is no evidence of aortic regurgitation. There is no evidence of aortic stenosis. Mild mitral regurgitation is present. Ahyq-oh-vpiorknw tricuspid regurgitation present. There is mild to moderate pulmonary hypertension. The right ventricular systolic pressure, as measured by Doppler, is 44.85mmHg. The aortic root size is normal. Normal inferior vena cava with normal inspiratory collapse consistent with estimated right atrial pre ssure of 5 mmHg. There is no pericardial effusion. CONCLUSIONS -------- 1. Sinus rhythm. 2. This was a technically adequate study. 3. The left ventricular size is normal. 4. There is mild concentric left ventricular hypertrophy. 5. Overall left ventricular systolic function is normal with, an EF between 55 - 60 %. 6. The right ventricle is mildly enlarged. 7. Normal LA size by volume 22+/-6 ml/m2. 8. The right atrium is mildly enlarged. 9. Interatrial and interventricular septum intact. 10. There is no evidence of aortic regurgitation. 11. There is no evidence of aortic stenosis. 12. Mild mitral regurgitation is present. 13. Ogcx-ci-yzzwibmj tricuspid regurgitation present. 14. There is mild to moderate pulmonary hypertension. 15. The right ventricular systolic pressure, as measured by Doppler, is 44.85mmHg. 16. The aortic root size is normal. 17. Normal inferior vena cava with normal inspiratory collapse consistent with estimated right atrial pressure of 5 mmHg. 18. There is no pericardial effusion. TOWERMAN: Melita Shah RDCS
[2019-12-22 16:30] LABS: Glucose,Whole Blood 113 mg/dL (75-99)
[2019-12-22] MEDS ORDERED: LOPERAMIDE 2 MG CAP PO STA (18:06)
[2019-12-22] MEDS: SODIUM CHLORIDE 0.9% 1,000 ML IV SCH (18:49)
[2019-12-22 20:28] LABS: Glucose,Whole Blood 89 mg/dL (75-99)
[2019-12-23] MEDS: LOPERAMIDE 2 MG CAP PO PRN ×2 (01:08→07:23)
[2019-12-23 07:00] LABS: Glucose,Whole Blood 91 mg/dL (75-99)
[2019-12-23] MEDS: INSULIN ASPART (NovoLOG) 100 UNIT/ML VIAL SQ SCH ×2 (07:08→11:38)
[2019-12-23] MEDS: NICOTINE 21MG/24HR PATCH TRANSDERM SCH (07:20)
[2019-12-23] MEDS: FAMOTIDINE 20 MG/2 ML VIAL IV SCH (07:23)
[2019-12-23] MEDS: METOPROLOL TARTRATE 12.5 MG TAB PO SCH (07:23)
[2019-12-23 07:24] LABS: Basophils % (A) 0 %; Eosinophils # (A) 0.8 k/uL (0-0.7); Eosinophils % (A) 7 %; HCT 39.8 % (34.0-46.0); HGB 12.9 gm/dL (11.4-16.0); Lymphocytes # (A) 1.7 k/uL (1.0-4.8); Lymphocytes % (A) 15 %; MCH 30.1 pg (25.0-35.0); MCHC 32.3 g/dL (31.0-37.0); MCV 93.1 fL (80.0-100.0); Mean Platelet Volume 7.5; Monocytes # (A) 0.6 k/uL (0-1.0); Monocytes % (A) 5 %; Neutrophils # (A) 8.3 k/uL (1.3-7.7); Neutrophils % (A) 72 %; Platelet Count 293 k/uL (150-450); RBC 4.28 m/uL (3.80-5.40); RDW 12.6 % (11.5-15.5); WBC 11.5 k/uL (3.8-10.6)
[2019-12-23] MEDS: ASPIRIN 81 MG PO SCH (07:24)
[2019-12-23] MEDS: IPRATROPIUM-ALBUTEROL 3 ML NEB INHALATION SCH ×2 (07:38→11:23)
[2019-12-23 08:09] VITALS: BP 166/82; RESP 17; TEMP 98.2
[2019-12-23] MEDS: HEPARIN SODIUM,PORCINE 5,000 UNIT/ML 1 ML VIAL SQ SCH (08:50)
[2019-12-23] MEDS ORDERED: predniSONE 10 MG TAB PO SCH (09:00)
[2019-12-23] MEDS ORDERED: AZITHROMYCIN 500 MG TAB PO SCH (09:00)
[2019-12-23 11:34] VITALS: PULSE 70
[2019-12-23 12:00] LABS: Glucose,Whole Blood 93 mg/dL (75-99)
--- NOTE | 2019-12-23 12:02 | P.DS ---
Providers Date of admission: 12/20/19 18:36 Attending physician: Neeru Oro Consults: 12/21/19 10:28 Consult Physician Urgent Consulting Provider: Lety Atkinson Consult Reason/Comments: chest discomfort with ST depression Do you want consulting provider notified?: Yes Primary care physician: Austin Valentine Hospital Course: Diagnoses: left lower lobe community acquired pneumonia possible mild acute COPD exacerbation. chest discomfort, with reversible ST depression in V4 to V6, evaluated by oven worker recommended medical treatment for now Leukocytosis, mostly reactive secondary to steroids Nicotine dependence possible alcohol abuse, at-risk of alcohol withdrawal asthma Hospital course: this is a pleasant 74 years old female with past medical history of asthma and cigarette smoker, who was transferred from [facility] area she is a patient of Dr. Dedrick Valentine. Presents with respiratory symptoms: She presents because of dyspnea of one-day duration associated with subjective chills, no fever,she has cough with little green purulent phlegm. Also patient has some chest discomfort,she had EKG Showing sinus tachycardia with ST depression in V4 to V6. Patient was transferred from [facility] for cardiac evaluation as well as treatment of her pneumonia. Patient was found to have committing acquired pneumonia, she was treated with Zithromax and ceftriaxone as well as steroids for her possible COPD, she showed interval improvement and her dyspnea, coughing and chest discomfort or resolved, she is saturating 94-97 percent on room air. And patient feels she can go home as her symptoms are improving and she is back to normal Also oven worker evaluated her and recommended aspirin and low-dose metoprolol to be admitted at [facility], no need for intervention currently but recommended patient follow-up as an outpatient for stress test and she agrees. patient had some mild diarrhea illicit antibiotic, no abdominal pain, no nausea vomiting. C. diff is negative. On the day of discharge patient denies chest pain, only very mild dyspnea,no exertional dyspnea, no cough and no abdominal pain, nausea vomiting, she is tolerating diet well. No fever Patient was cleared for discharge by oven worker Problems and management plan were discussed with the patient and he verbalized understanding and acceptance Patient was found stable and can be discharged home however he needs follow-up as an outpatient. Patient was instructed to follow up with PCP Dr. Dedrick Valentine within one week and patient agrees. Also patient was instructed to follow up with oven worker Dr. Atkinson in 1-2 weeks for outpatient stress test and she agrees. Also patient instructed to follow up with caterer helper Dr. Alvarez in 1- 2 weeks and she agrees. Patient is counseled about sleep hygiene, about self quarantine during covid pandemic, and medication as well. Gen: patient is a AAOx3, no distress CVS: S1-S2, RRR, no murmur Lungs: B/L CTA, no wheezing Abdomen: soft, no distention, no tenderness, positive bowel sounds Extremity: no leg edema or induration Time spent more than 35 minutes Patient Condition at Discharge: Stable Plan - Discharge Summary Discharge Rx Participant: Yes New Discharge Prescriptions: No Action Zolpidem Tartrate [Ambien] 5 mg PO HS PRN PRN Reason: Insomnia Nitrofurantoin Monohyd/M-Cryst [Macrobid] 100 mg PO BID Cetirizine HCl/Pseudoephedrine [Zyrtec-D Tablet] 1 tab PO DAILY Discharge Medication List Cetirizine HCl/Pseudoephedrine [Zyrtec-D Tablet] 1 tab PO DAILY 12/21/19 [History] Nitrofurantoin Monohyd/M-Cryst [Macrobid] 100 mg PO BID 12/21/19 [History] Zolpidem Tartrate [Ambien] 5 mg PO HS PRN 12/21/19 [History] Follow up Appointment(s)/Referral(s): Lety Atkinson MD [STAFF PHYSICIAN] - 01/09/20 9:00 am (Nanotechnologist, for stress test as an outpatient) Austin Valentine MD [Primary Care Provider] - 1-2 days (office not answering. Please call for appointment)
== END 2019-12-23 13:18 | disposition home or self-care (01) ==
LOC: EC 17:54 → 4SSUR 18:36 → INTOOBSV 18:36 → UNDODISIN 12-23 13:18
PROVIDERS: ADMIT Hospitalist; ATTEND Hospitalist
DX: J18.9 Pneumonia, unspecified organism (principal); J45.901 Unspecified asthma with (acute) exacerbation; R07.89 Other chest pain; R94.31 Abnormal electrocardiogram [ECG] [EKG]; R00.0 Tachycardia, unspecified; D72.829 Elevated white blood cell count, unspecified; F17.210 Nicotine dependence, cigarettes, uncomplicated; R19.7 Diarrhea, unspecified; I10 Essential (primary) hypertension; I08.1 Rheumatic disorders of both mitral and tricuspid valves; I27.20 Pulmonary hypertension, unspecified; Z03.818 Encounter for observation for suspected exposure to other biological agents ruled out; Z88.0 Allergy status to penicillin
CPT/HCPCS: 96376 ×3; 96365; 96366 ×2; 96367; 96372 ×4; 96375 ×2; 96368; 99285; 94640 ×6; 94760; 93005; 93306; 80048 ×2; 80076; 83735; 84484; 85025 ×3; 85610; 85730; 87324; 87070; 87205; 87635; 71045; G0378 ×4; J1644 ×4; J2920; J2930 ×2; J0456 ×2; J0696 ×3; J7512 ×2

== ENCOUNTER 2020-02-18 06:06 | Day surgery (SDC) | payer MEDICARE ==
[2020-02-12 11:40] VITALS: BMI 30.1
[~2020-02-18 06:06] MED LIST: ALPRAZolam 0.25 MG TAB PO PRN; ALPRAZolam 0.5 MG TAB PO PRN; ASPIRIN 325 MG TAB PO STA; ATORVASTATIN 80 MG TAB PO STA; NITROGLYCERIN SL TABS 0.4 MG TAB SUBLINGUAL PRN; SODIUM CHLORIDE 0.9% 1,000 ML in EMPTY BAG 1 BAG IV ONE
[2020-02-18] MEDS ORDERED: SODIUM CHLORIDE 0.9% 1,000 ML IV ONE (06:24)
[2020-02-18] MEDS ORDERED: METOPROLOL TARTRATE 12.5 MG TAB PO STA ×2 (06:27→07:07)
[2020-02-18] MEDS ORDERED: LISINOPRIL 5 MG TAB PO STA ×2 (06:27→07:06)
[2020-02-18] MEDS ORDERED: ALPRAZolam 0.5 MG TAB ONE (06:31)
[2020-02-18] MEDS ORDERED: HEPARIN SODIUM 1,000 UN/ML (10ML VL) ONE (07:17)
[2020-02-18] MEDS ORDERED: fentaNYL (PF) 50 MCG/ML 2 ML AMP ONE (07:18)
[2020-02-18] MEDS ORDERED: LIDOCAINE 1% INJ 10MG/ML (20 ML MDV) ONE (07:18)
[2020-02-18] MEDS ORDERED: VERAPAMIL 2.5 MG/ML 2 ML AMP ONE (07:18)
[2020-02-18 07:24] LABS: Basophils # (A) 0.1 k/uL (0-0.2); Basophils % (A) 1 %; Eosinophils # (A) 0.3 k/uL (0-0.7); Eosinophils % (A) 3 %; HCT 44.9 % (34.0-46.0); HGB 15.3 gm/dL (11.4-16.0); Lymphocytes # (A) 2.7 k/uL (1.0-4.8); Lymphocytes % (A) 30 %; MCH 31.5 pg (25.0-35.0); MCHC 34.1 g/dL (31.0-37.0); MCV 92.2 fL (80.0-100.0); Mean Platelet Volume 7.4; Monocytes # (A) 0.5 k/uL (0-1.0); Monocytes % (A) 5 %; Neutrophils # (A) 5.3 k/uL (1.3-7.7); Neutrophils % (A) 59 %; Platelet Count 282 k/uL (150-450); RBC 4.87 m/uL (3.80-5.40); RDW 13.4 % (11.5-15.5); WBC 8.9 k/uL (3.8-10.6)
[2020-02-18 07:26] LABS: African American GFR (CKD) >90 (>60 ml/min/1.73 sqM); Anion Gap 6 mmol/L; Blood Urea Nitrogen 16 mg/dL (7-17); Calcium 9.5 mg/dL (8.4-10.2); Carbon Dioxide 25 mmol/L (22-30); Chloride 107 mmol/L (98-107); Glucose 111 mg/dL (74-99); Non-African American GFR(CKD) >90 (>60 ml/min/1.73 sqM); Sodium 138 mmol/L (137-145)
[2020-02-18 07:28] LABS: Potassium 4.5 mmol/L (3.5-5.1)
[2020-02-18] MEDS ORDERED: fentaNYL (PF) 50 MCG/ML 2 ML AMP IVP ONE (07:54)
[2020-02-18] MEDS ORDERED: LIDOCAINE 1% INJ 10MG/ML (20 ML MDV) SQ ONE (07:58)
[2020-02-18] MEDS ORDERED: VERAPAMIL SYRINGE (5 MG/10 ML) INTRAARTER ONE (08:00)
[2020-02-18] MEDS ORDERED: HEPARIN SODIUM 1,000 UN/ML (10ML VL) IV ONE (08:07)
[2020-02-18] MEDS ORDERED: RX INFO: IV CONTRAST WAS GIVEN 1 EACH MISC MISCELLANE PRN (08:29)
[2020-02-18] MEDS ORDERED: ZOLPIDEM 5 MG TAB PO PRN (08:30)
[2020-02-18] MEDS ORDERED: SODIUM CHLORIDE 0.9% 1,000 ML IV SCH (08:30)
[2020-02-18] MEDS ORDERED: ALBUTEROL NEBULIZED 2.5 MG/3 ML INHALATION PRN (08:30)
[2020-02-18] MEDS ORDERED: LISINOPRIL 5 MG TAB PO SCH (09:00)
[2020-02-18] MEDS ORDERED: METOPROLOL TARTRATE 12.5 MG TAB PO SCH (09:00)
[2020-02-18] MEDS ORDERED: ASPIRIN 81 MG PO SCH (09:00)
--- NOTE | 2020-02-18 11:09 | CC ---
CARDIAC CATHETERIZATION REPORT Mrs Gonzalez is a 74-year-old female with known history of hypertension, chronic tobacco use, who has been complaining of progressive dyspnea on exertion. She underwent myocardial perfusion imaging that was consistent with stress-induced ischemia. In view of that, recommendation made regarding cardiac catheterization. The procedures, risks, and complication were discussed with the patient, who is in full understanding and agreement. PROCEDURE: Patient was brought to labeling associate in a fasting semi-sedated state after receiving fentanyl and Benadryl and achieving moderate conscious sedated state. Using Xylocaine anesthesia and Seldinger technique, a 6-Cameroonian sheath was introduced in the right radial artery. Attempted cannulization of the left main with an F 5-Cameroonian, 3.5 bend left Yoel was unsuccessful. The right Yoel was sub selectively cannulated using a 3.5, 4 bend right Yoel and 4 bend 5-Cameroonian right Yoel. The left main was cannulated using a 5 5-Cameroonian 4 bend left Yoel catheter. Multiple views of the artery including makes a DC filemon x-ray views were obtained. The left Yoel catheter was used to cross the aortic valve and left ventricular end-diastolic pressure was calculated. Following that, catheter and sheath were removed. Hemostasis was obtained with deployment of a TR band. There was no immediate complication. The patient is returned to her room in stable condition. Of note, the patient received 4000 units of intravenous heparin as well as intra-arterial verapamil. FINDINGS: LEFT MAIN: This is a short size vessel, bifurcating into left circumflex, left anterior descending artery. Left main artery has no evidence of high-grade stenosis. LEFT ANTERIOR DESCENDING ARTERY: This is a large-sized vessel, reaching toward the apex with a wraparound apex segment giving rise to a moderately sized diagonal branch. The left anterior descending artery as well as branches have no evidence of obstructive coronary artery disease. LEFT CIRCUMFLEX: This is a codominant large size vessel, giving rise to a large obtuse marginal branch. In the mid segment, distally bifurcating into PDA and posterolateral segment and branches. The left circumflex as well as branches have no evidence of obstructive coronary artery disease. RIGHT CORONARY ARTERY: This is a codominant vessel, has a superior takeoff, small in caliber that has no evidence of high-grade stenosis. LEFT VENTRICULOGRAM: Left ventriculogram was not performed. HEMODYNAMICS: There was no gradient across the aortic valve. The left ventricular end- diastolic pressure was 14-16 mmHg. CONCLUSION: 1. Normal coronary arteries. 2. Normal left ventricular size and systolic function. RECOMMENDATION: In view of findings and anatomy, recommend continue medical therapy with aggressive risk modifications being initiated. Those findings and recommendation were discussed with the patient and her family and they are in full understanding and agreement. Duration of procedure is 25 minutes. TRISTIAN / ROSYN: [id number] /
[2020-02-18] MEDS ORDERED: FLUTICASONE PROPIONATE 220 MCG INHALATION SCH (20:00)
[2020-02-18] MEDS ORDERED: CITALOPRAM HYDROBROMIDE 10 MG TAB PO SCH (21:00)
[2020-02-18] MEDS ORDERED: MONTELUKAST 10 MG TAB PO SCH (21:00)
[2020-02-20 06:02] VITALS: BP 182/68; PULSE 55; RESP 16; TEMP 97.8
== END 2020-02-18 13:20 | disposition home or self-care (01) ==
LOC: CATHCVL 06:06
PROVIDERS: ATTEND Internal Medicine Interventional Cardiology
DX: R06.09 Other forms of dyspnea (principal); R94.39 Abnormal result of other cardiovascular function study; R14.2 Eructation; I10 Essential (primary) hypertension; F17.210 Nicotine dependence, cigarettes, uncomplicated; F41.9 Anxiety disorder, unspecified; F32.9 Major depressive disorder, single episode, unspecified; Z88.0 Allergy status to penicillin; Z79.899 Other long term (current) drug therapy; Z79.82 Long term (current) use of aspirin; Z79.51 Long term (current) use of inhaled steroids; Z91.09 Other allergy status, other than to drugs and biological substances; Z82.49 Family history of ischemic heart disease and other diseases of the circulatory system
CPT/HCPCS: 93458; 80048; 85025; C1769; C1894; J2001; J3010; J1644